=== PATIENT | female | born 1995 | race Caucasian/White ===

== ENCOUNTER 2020-11-16 09:47 | Observation (INO) | payer OTHER, SELFPAY ==
[2020-11-16 10:12] VITALS: BP 129/77; PULSE 102
[2020-11-16 10:15] VITALS: BMI 30.2
[2020-11-16 10:44] LABS: Add Urine Microscopic? YES; Appearance Urine Clear (Clear); Bilirubin Urine Negative (Negative); Blood Urine Negative (Negative); Color Urine Straw (Yellow); Glucose Urine UA Negative (Negative); Ketones Urine 1+ mg/dL (Negative); Leukocyte Esterase Ur Trace LEU/UL (Negative); Nitrate Urine Negative (Negative); Protein Urine Negative (Negative); RBC Urine 0-2 /hpf (0-2); Specific Grav Ur 1.005 (1.001-1.035); Squamous Epithelial Cell Urine Many /hpf (Few); Urobilinogen Urine Negative mg/dL (<2.0); WBC Urine 0-3 /hpf
--- NOTE | 2020-12-07 07:56 | P.PNOB_ITS ---
OB - Triage/Final Diagnosis Visit Information Comments/Additional reasons for admission: I have assessed the risk for this patient, Soni Newby, and determined that she would benefit from observation care. Evaluation Laboratory results: Laboratory Tests 11/16/20 10:19 Urine Color Straw Urine Appearance Clear Urine pH 6.0 Ur Specific [place] 1.005 Urine Protein Negative Urine Glucose (UA) Negative Urine Ketones 1+ H Ur Blood (Man) Negative Urine Nitrate Negative Urine Bilirubin Negative Urine Urobilinogen Negative Leukocyte Esterase Rfl Trace H Urine RBC 0-2 Urine WBC 0-3 Ur Squamous Epith Cells Many H Final Diagnosis (1) False labor: Code(s): O47.9 - False labor, unspecified Status: Acute
== END 2020-11-16 12:00 | disposition home or self-care (01) ==
PROVIDERS: Advanced Practice Midwife; Admitting Provider Obstetrics & Gynecology; PCP Family Medicine; Visit Provider Obstetrics & Gynecology
DX: O47.03 False labor before 37 completed weeks of gestation, third trimester (principal); Z3A.32 32 weeks gestation of pregnancy
CPT/HCPCS: 81001; G0378; G0379

== ENCOUNTER 2021-01-01 16:47 | Inpatient (IN) | payer OTHER, SELFPAY ==
--- OUTSIDE RECORDS SUMMARY | 2021-01-01 16:53 | XMS_ITS ---
:1995 Author Care Team Providers Name Role Phone OMARI CLINE MD Primary Care Provider [phone] Allergies Code Code System Name Reaction Severity Status Onset NKDA ? Medications Name Status Start Date Stop Date ? ? albuterol sulfate Active ? Not available OneTouch Delica Plus Lancet 33 gauge Active ? Not available OneTouch Ultra Test strips Active ? Not a vailable OneTouch Ultra2 Meter Active ? Not availa ble USE TO TEST BLOOD SUGAR 4 TIMES A DAY Active ? Not available Problems Name Status Onset Date Source ? Active 06/28/2020 ? Gestational Diabetes Mellitus Active ? ? Procedures Date Name Performed by ? ? Extraction of [place] Tooth Information n ot available 02/08/2020 , Pelvis [place] [address] [place] [address] (Work [address]) 02/08/2020 , Transvaginal [facility] [address] [place] [address] ([address]) 06/28/2020 US, Obstetric, Nuchal Translucency Darcy hargrove [address] [place] [place] [address] (Work [address]) 08/23/2020 US, Obstetric, 2Nd or 3Rd Trimester Rosanne cochran
--- OUTSIDE RECORDS SUMMARY | 2021-01-01 16:53 | XMS_ITS | Encounter Summary ---
:1995 Author Care Team Providers Name Role Phone David Khanna MD Primary Care Provider [phone] Reason for Visit None recorded. Assessment and Plan 1. Gestational diabetes mellitus , class A>1< Informed pt of results, explai svetlana in depth what the high levels mean, how her body is not processing the sugars correctly and this does rule her in for GDM. Pt states she has no history of DM, only mother who had GDM with all pregnancies. Spoke with patient briefly on the teleph one on 10/20/20 about diet changes and how to adjust meals to decrease carbs and increase protein and healthy fats. Advised to continue low sugar, low carb diet, a nd higher proteins. Reviewed different m eal adjustments and ways to decrease carbs with still getting all of the nutrients she needs. Advised to follow 3 meals a day with snacks in between meals with im portance on the bedtime meal. Reviewed n utritional label with patient and how to count carbs for each meal. Reviewed liquids to avoid and ways to incorporate flavor into water consumption. Pt state she is used to a keto diet and drinks 6 lorin les of water daily. Pt questions whether she can drink water in the middle of the night, advised sips of water are ok, but not to drink large quantity as this can throw off her fasting levels. Advised t o be conscientious of meals and record foods that increase her levels and to avoid those types of foods. Reviewed acceptable drinks for patient and what to avoid. Advised to continue checking blood sugar s four times daily fasting and 1 hour after breakfast, lunch, and dinner. All supplies called into pharmacy on file, confirmed with patient. Pt states checks are going well, no problems with equipment, and understands when to check levels. Advised to continue to record all levels and bring to all appointments from here on out to review with MD. Pt has next appt on 10/30/20, advised we would check blood sugar levels at this time, and if any levels are high to call the office to follow up. Advised will monitor diet controlled and assess the
--- OUTSIDE RECORDS SUMMARY | 2021-01-01 16:54 | XMS_ITS | Encounter Summary ---
:1995 Author Care Team Providers Name Role Phone David Khanna MD Primary Care Provider [phone] Reason for Visit OB visit 38wks Assessment and Plan 1. Routine care Discussion Note: None recorded.Patient educational handouts: No information available. Plan of Care Reminders Provider Appointments Ob Routine 01/08/2021 Geena Shanique 10:00AM MD Timothy ? 3Hr on or around [place] Glucose 02/19/2021 MD [facility] None ? ? recorded. Referral None ? ? recorded. Procedures None ? ? recorded. Surgeries None ? ? recorded. Imaging None ? ? recorded. Medications Name Start Date ? ? albuterol sulfate ? OneTouch Delica Plus Lancet 33 gauge ? USE TO TEST BLOOD SUGAR 4 TIMES A DAY OneTouch Ultra Test strips ? USE TO TEST BLOOD SUGAR 4 TIMES A DAY F ASTING IN THE MORNING AND 1 HR AFTER MEALS OneTouch Ultra2 Meter ? USE TO TEST BLOOD SUGAR 4 TIMES A DAY ? Medications Administered None recorded. Vitals Height Weight BMI Blood Pressure 5 ft 3 in 186 lbs 32.9 kg/m2 128/85 mm[Hg] Results Lab Results None recorded. Allergies
--- OUTSIDE RECORDS SUMMARY | 2021-01-01 16:54 | XMS_ITS | Encounter Summary ---
:1995 Author Care Team Providers Name Role Phone David Khanna MD Primary Care Provider [phone] Reason for Visit None recorded. Assessment and [...]
--- OUTSIDE RECORDS SUMMARY | 2021-01-01 16:54 | XMS_ITS | Encounter Summary ---
:1995 Author Care Team Providers Name Role Phone David Khanna MD Primary Care Provider [phone] Reason for Visit None recorded. Assessment and Plan 1. Gestational diabetes mellitus , class A>1< ? non-stress test Discussion Note: None recorded.Patient educational handouts: No information available. Plan of Care Reminders Provider Appointments Ob Routine 01/08/2021 Geena Shanique 10:00AM MD Timothy ? 3Hr on or around [place] Glucose 02/19/2021 MD [facility] None ? ? recorded. Referral None ? ? recorded. Procedures None ? ? recorded. Surgeries None ? ? recorded. Imaging Non-stress 12/18/2020 [facility] Medications Name Start Date ? ? albuterol [...] DAY ? Medications Administered None recorded. Vitals None recorded. Results Lab Results None recorded. Allergies Code Code System Name Reaction Severity Onset
--- OUTSIDE RECORDS SUMMARY | 2021-01-01 16:54 | XMS_ITS | Encounter Summary ---
:1995 Author Care Team Providers Name Role Phone David Khanna MD Primary Care Provider [phone] Reason for Visit None recorded. Assessment and [...]
--- OUTSIDE RECORDS SUMMARY | 2021-01-01 16:54 | XMS_ITS | Encounter Summary ---
:1995 Author Care Team Providers Name Role Phone David Khanna MD Primary Care Provider [phone] Reason for Visit OB visit 36wks / GBS today Assessment and Plan 1. Routine care Discussion [...] BMI Blood Pressure 5 ft 3 in 183 lbs 32.4 kg/m2 124/73 mm[Hg] Results Lab Results None recorded. Allergies
--- OUTSIDE RECORDS SUMMARY | 2021-01-01 16:54 | XMS_ITS | Encounter Summary ---
:1995 Author Care Team Providers Name Role Phone David Khanna MD Primary Care Provider [phone] Reason for Visit None recorded. Assessment and [...]
--- OUTSIDE RECORDS SUMMARY | 2021-01-01 16:54 | XMS_ITS | Encounter Summary ---
:1995 Author Care Team Providers Name Role Phone David Khanna MD Primary Care Provider [phone] Reason for Visit OB visit Assessment and Plan 1. Gestational diabetes mellitus , class A>1< Discussion Note: None recorded.Patient educational handouts: No [...] BMI Blood Pressure 5 ft 3 in 184 lbs 32.6 kg/m2 129/84 mm[Hg] Results Lab Results None recorded. Allergies Code Code System
--- OUTSIDE RECORDS SUMMARY | 2021-01-01 16:55 | XMS_ITS | Encounter Summary ---
:1995 Author Care Team Providers Name Role Phone David Khanna MD Primary Care Provider [phone] Reason for Visit None recorded. Assessment and [...]
--- OUTSIDE RECORDS SUMMARY | 2021-01-01 16:55 | XMS_ITS | Encounter Summary ---
:1995 Author Care Team Providers Name Role Phone David Khanna MD Primary Care Provider [phone] Reason for Visit None recorded. Assessment and [...]
--- OUTSIDE RECORDS SUMMARY | 2021-01-01 16:55 | XMS_ITS | Encounter Summary ---
:1995 Author Care Team Providers Name Role Phone David Khanna MD Primary Care Provider [phone] Reason for Visit None recorded. Assessment and Plan 1. Gestational diabetes mellitus , class A>1< ? US, obstetric, follow-up Discussion Note: None recorded.Patient educational handouts: No information available. Plan of Care Reminders Provider Appointments Ob Routine 01/08/2021 Geena Shanique 10:00AM MD Timothy ? 3Hr on or around [place] Glucose 02/19/2021 MD [facility] None ? ? recorded. Referral None ? ? recorded. Procedures None ? ? recorded. Surgeries None ? ? recorded. Imaging US, 12/04/2020 [place] [facility], Follow-up Medications Name Start Date ? ? albuterol [...]
--- OUTSIDE RECORDS SUMMARY | 2021-01-01 16:55 | XMS_ITS | Encounter Summary ---
:1995 Author Care Team Providers Name Role Phone David Khanna MD Primary Care Provider [phone] Reason for Visit OB visit Assessment and Plan 1. Gestational diabetes mellitus Discussion Note: None recorded.Patient educational handouts: No [...] BMI Blood Pressure 5 ft 3 in 181 lbs 32.1 kg/m2 127/78 mm[Hg] Results Lab Results None recorded. Allergies Code Code System Name React
--- OUTSIDE RECORDS SUMMARY | 2021-01-01 16:56 | XMS_ITS | Encounter Summary ---
:1995 Author Care Team Providers Name Role Phone David Khanna MD Primary Care Provider [phone] Reason for Visit None recorded. Assessment and [...] Surgeries None ? ? recorded. Imaging Non-stress 11/20/2020 [facility] Medications Name Start Date [...]
--- OUTSIDE RECORDS SUMMARY | 2021-01-01 16:56 | XMS_ITS | Encounter Summary ---
:1995 Author Care Team Providers Name Role Phone David Khanna MD Primary Care Provider [phone] Reason for Visit OB visit Assessment and [...] BMI Blood Pressure 5 ft 3 in 180 lbs 31.9 kg/m2 118/77 mm[Hg] Results Lab Results None recorded. Allergies Code Code System Name React
--- OUTSIDE RECORDS SUMMARY | 2021-01-01 16:56 | XMS_ITS | Encounter Summary ---
:1995 Author Care Team Providers Name Role Phone David Khanna MD Primary Care Provider [phone] Reason for Visit None recorded. Assessment and [...] Surgeries None ? ? recorded. Imaging Non-stress 12/04/2020 [facility] Medications Name Start Date [...]
--- OUTSIDE RECORDS SUMMARY | 2021-01-01 16:56 | XMS_ITS | Encounter Summary ---
:1995 Author Care Team Providers Name Role Phone David Khanna MD Primary Care Provider [phone] Reason for Visit OB visit Assessment and Plan 1. Routine care 2. Gestational diabetes mellitus , class A>1< Discussion [...] ft 3 in 180 lbs 31.9 kg/m2 125/81 mm[Hg] Results Lab Results
--- OUTSIDE RECORDS SUMMARY | 2021-01-01 16:56 | XMS_ITS | Encounter Summary ---
:1995 Author Care Team Providers Name Role Phone David Khanna MD Primary Care Provider [phone] Reason for Visit None recorded. Assessment and [...]
--- OUTSIDE RECORDS SUMMARY | 2021-01-01 16:56 | XMS_ITS | Encounter Summary ---
:1995 Author Care Team Providers Name Role Phone David Khanna MD Primary Care Provider [phone] Reason for Visit None recorded. Assessment and [...] Surgeries None ? ? recorded. Imaging Non-stress 11/27/2020 [facility] Medications Name Start Date [...]
--- OUTSIDE RECORDS SUMMARY | 2021-01-01 16:57 | XMS_ITS | Encounter Summary ---
:1995 Author Care Team Providers Name Role Phone David Khanna MD Primary Care Provider [phone] Reason for Visit None recorded. Assessment and Plan 1. Spotting per vagina in pregna ncy ? US, obstetric, biophysical profile + non-stress test Discussion Note: None recorded.Patient educational handouts: No information available. Plan of Care Reminders Provider Appointments Ob Routine 01/08/2021 Geena Shanique 10:00AM MD Timothy ? 3Hr Glucose on or around Remigio [place] 02/19/2021 MD [facility] None ? ? recorded. Referral None ? ? recorded. Procedures None ? ? recorded. Surgeries None ? ? recorded. Imaging US, 11/16/2020 [place] [facility], Biophysical Profile + Non-stress Test Medications Name Start Date ? ? [...]
--- OUTSIDE RECORDS SUMMARY | 2021-01-01 16:57 | XMS_ITS | Encounter Summary ---
:1995 Author Care Team Providers Name Role Phone David Khanna MD Primary Care Provider [phone] Reason for Visit OB visit Assessment and Plan Assessment Note Patient is ___weeks . Discu ssed plan. 1. Routine care Discussion Note: None recorded.Patient educational handouts: No information available. Plan of Care Reminders Provider Appointments Ob Routine 01/08/2021 Geena Shanique 10:00AM MD Timothy ? 3Hr on or around Rohit [place] Glucose 02/19/2021 MD [facility] None ? [...] BMI Blood Pressure 5 ft 3 in 177 lbs 31.4 kg/m2 122/75 mm[Hg] Results
--- OUTSIDE RECORDS SUMMARY | 2021-01-01 16:57 | XMS_ITS | Encounter Summary ---
:1995 Author Care Team Providers Name Role Phone David Khanna MD Primary Care Provider [phone] Reason for Visit None recorded. Assessment and [...] will monitor diet controlled and assess the n
--- OUTSIDE RECORDS SUMMARY | 2021-01-01 16:57 | XMS_ITS | Encounter Summary ---
:1995 Author Care Team Providers Name Role Phone David Khanna MD Primary Care Provider [phone] Reason for Visit None recorded. Assessment and [...]
--- OUTSIDE RECORDS SUMMARY | 2021-01-01 16:57 | XMS_ITS | Encounter Summary ---
:1995 Author Care Team Providers Name Role Phone David Khanna MD Primary Care Provider [phone] Reason for Visit None recorded. Assessment and Plan 1. Gestational diabetes mellitus ? US, obstetric, follow-up Discussion Note: None recorded.Patient educational handouts: No information available. Plan of Care Reminders Provider Appointments Ob Routine 01/08/2021 Geena Shanique 10:00AM MD Timothy ? 3Hr on or around Rohit ann Glucose 02/19/2021 MD [facility] None ? ? recorded. Referral None ? ? recorded. Procedures None ? ? recorded. Surgeries None ? ? recorded. Imaging US, 11/06/2020 [place] [facility], Follow-up Medications Name Start Date ? [...]
--- OUTSIDE RECORDS SUMMARY | 2021-01-01 16:57 | XMS_ITS | Encounter Summary ---
:1995 Author Care Team Providers Name Role Phone David Khanna MD Primary Care Provider [phone] Reason for Visit None recorded. Assessment and Plan 1. condition affecting obs tetrical care of mother ? US, obstetric, biophysical profile + non-stress [...] Surgeries None ? ? recorded. Imaging US, 11/13/2020 [place] [facility], Biophysical Profile + Non-stress Test Medications [...]
--- OUTSIDE RECORDS SUMMARY | 2021-01-01 16:58 | XMS_ITS | Encounter Summary ---
:1995 Author Care Team Providers Name Role Phone David Khanna MD Primary Care Provider [phone] Reason for Visit OB visit Assessment and Plan 1. Routine care Discussion [...] BMI Blood Pressure 5 ft 3 in 179 lbs 31.7 kg/m2 119/83 mm[Hg] Results Lab Results None recorded. Allergies Code Code System Name Reaction S
[2021-01-01 17:10] VITALS: BP 135/84; PULSE 58
[2021-01-01 17:15] VITALS: BP 127/78; PULSE 60
[2021-01-01 17:30] VITALS: BP 120/79; PULSE 64; BMI 31.4
[2021-01-01 18:08] LABS: Basophils Percent Auto 0.1 % (0.2-1.2); Eosinophils Absolute Auto 0.1 K/mm3 (0-0.3); Eosinophils Percent Auto 0.9 % (0-4.4); Hematocrit 32.6 % (37.0-47.0); Hemoglobin 10.4 g/dL (12.0-15.0); Immature Granulocyte Absolute 0.05 K/mm3 (0.00-0.031); Immature Granulocyte Percent A 0.5 % (0-0.5); Lymphocytes Absolute Auto 1.89 K/mm3 (0.9-3.2); Lymphocytes Percent Auto 19.7 % (18.3-44.2); Mean Corpuscular HGB Conc 31.9 g/dl (32-36); Mean Corpuscular Hemoglobin 24.9 pg (26-34); Mean Platelet Volume 11.7 fl (7.4-10.4); Monocytes Absolute Auto 0.9 K/mm3 (0.1-0.6); Monocytes Percent Auto 9.3 % (2.6-8.5); Neutrophils Absolute Auto 6.7 K/mm3 (1.3-6.7); Neutrophils Percent Auto 69.5 % (45.5-73.1); Platelet Count Result 241 k/mm3 (150-375); Red Blood Count 4.18 M/mm3 (4.2-5.4); Red Cell Distribution Width 13.1 % (11.5-14.5); White Blood Count 9.6 K/mm3 (4.5-10.0)
[2021-01-01 18:15] VITALS: BP 125/83; PULSE 64
[2021-01-01 18:30] VITALS: BP 120/89; PULSE 58
[2021-01-01 18:41] LABS: Glucose Point of Care 59 mg/dl (65-105)
[2021-01-01] MEDS: DINOPROSTONE 10 MG VAG INSERT VAGINAL (18:58)
[2021-01-01 19:14] VITALS: TEMP 36.4
[2021-01-01 20:00] LABS: Glucose Point of Care 79 mg/dl (65-105)
[2021-01-02] VITALS (188 sets, daily range): BP systolic 107–148; BP diastolic 56–107; PULSE 48–107; RESP 18–20; TEMP 36.1–36.7; O2SAT 96–100
[2021-01-02 01:15] LABS: Glucose Point of Care 95 mg/dl (65-105)
[2021-01-02 05:08] LABS: Glucose Point of Care 61 mg/dl (65-105)
--- NOTE | 2021-01-02 06:55 | LDADM ---
This patient, Soni Newby, was admitted to Labor/Delivery/Recovery 104 on 01/01/21 at 16:47. Plans for labor, pain management and were discussed with patient. Patient/family oriented to hospital policies and general routines including ID bracelet, bed and alarms, visiting hours, pain management, procedures, bathroom and other care routines, personal items, smoking policy, room service/diet and guest tray routines, infant security routines, and visiting hours. Patient/Family are encouraged to report perceived risks to care and to ask questions if they do not understand what they are told or what they should do. See OBIX for further documentation.
[2021-01-02] MEDS: OXYTOCIN 30 UNITS/NS 500 ML 30 UNITS/500 ML BAG IV CONT (07:59)
[2021-01-02] MEDS: LACTATED RINGERS 1,000 ML 125 ML IV CONT ×3 (08:00→15:07)
--- NOTE | 2021-01-02 08:09 | PM.IMHP ---
H&P: HPI History of Present Illness Date/Time: 01/02/21 08:09 Chief Complaint: induction of labor Narrative: Soni is a G1 at 39.1 for elective IOL. uncomplicated. Had cervidil overnight. Is feeling some contractions. Review of Systems Review of Systems: All systems reviewed & are unremarkable except as noted in HPI and below PMFSH Family History Family History (Updated 12/11/20 @ 12:30 by Santo Collier RN) Other No pertinent family history Social History Social History Smoking status: Never smoker Second hand tobacco smoke exposure: No Substance use: never Spiritual care concerns: No Meds Home Medications and Allergies Home Medications Medication Instructions Recorded Confirmed Type PNV cmb#95-ferrous fumarate-FA 1 tablet PO DAILY 12/11/20 12/11/20 History [] albuterol 90 mcg INHALATION DAILY PRN 12/11/20 12/11/20 History Allergies Allergy/AdvReac Type Severity Reaction Status Date / Time No Known Allergies Allergy Verified 12/11/20 12:28 Vital Signs Vital Signs - 24 hr 01/01/21 17:10 01/01/21 17:15 01/01/21 17:30 Temperature Pulse Rate 58 L 60 64 Respiratory Rate Blood Pressure 135/84 127/78 120/79 01/01/21 18:15 01/01/21 18:30 01/01/21 19:14 Temperature 97.5 F L Pulse Rate 64 58 L Respiratory Rate Blood Pressure 125/83 120/89 01/02/21 01:16 01/02/21 05:09 01/02/21 07:13 Temperature 97.2 F L Pulse Rate 61 65 Respiratory Rate 18 Blood Pressure 116/63 119/75 01/02/21 07:14 01/02/21 07:30 01/02/21 08:01 Temperature Pulse Rate 60 68 63 Respiratory Rate Blood Pressure 127/80 129/76 129/79 Exam Const: General: no acute distress Resp: Effort & Inspection: normal respiratory effort Auscultation: clear to auscultation bilaterally Cardio: Rate: regular rate Rhythm: regular rhythm GI: GI Palp: Yes Soft to palpation Extrem: General: normal to inspection H&P: Results Labs Labs: Short CBC 01/01/21 Range/Units 18:00 WBC 9.6 (4.5-10.0) K/mm3 Hgb 10.4 L (12.0-15.0) g/dL Hct 32.6 L (37.0-47.0) % Plt Count 241 (150-375) k/mm3 Assessment and Plan Additional Plan Here for induction of labor- elective GBS neg SVE /-3 unable to AROM, some bloody show pitocin per protocol, reattempt arom in several hours if does not SROM FHT category 1 Discussed POC with pt, , and RN.
[2021-01-02 09:00] LABS: Glucose Point of Care 72 mg/dl (65-105)
[2021-01-02 11:37] LABS: Rapid Plasma Reagin Non-Reactive (NonReactive)
[2021-01-02] MEDS: fentaNYL CITRATE INJ (*CRX) 100 MCG/2 ML VIAL 50 MCG IV PUSH (12:21)
[2021-01-02 12:41] LABS: Glucose Point of Care 60 mg/dl (65-105)
--- NOTE | 2021-01-02 13:12 | PM.OBPNLAB ---
Pain Control Date/time seen: 01/02/21 13:12 Pain control: tolerating well and narcotic analgesia Pelvic Exam Dilation (cm): 3 Effacement (%): 70 station: -3 Amniotic membrane status: Ruptured Comments: AROM clear around 1305 Contractions Contraction pattern: Irregular Status status: Category l Assessment and Plan Plan: continuous present management
[2021-01-02] MEDS: fentaNYL CITRATE INJ (*CRX) 100 MCG/2 ML VIAL IV PUSH (14:13)
--- NOTE | 2021-01-02 15:06 | WPDANESEPPF ---
Anes - Initial Pre Proc Eval Date/Time: 01/02/21 15:06 Surgeon: Gunnar Kasper MD Pre Op Diagnosis: Induction of Labor Patient Data Age: 25 Gender: F Height: 1.63 m Weight: 83 kg Last Vital Signs Temp 36.5 C 01/02/21 15:00 Pulse 58 L 01/02/21 15:01 Resp 20 01/02/21 15:00 BP 119/78 01/02/21 15:01 Pulse Ox 99 01/02/21 15:02 Allergies Allergy/AdvReac Type Severity Reaction Status Date / Time No Known Allergies Allergy Verified 12/11/20 12:28 Home Medications Medication Instructions Recorded Confirmed Type PNV cmb#95-ferrous fumarate-FA 1 tablet PO DAILY 12/11/20 12/11/20 History [] albuterol 90 mcg INHALATION DAILY PRN 12/11/20 12/11/20 History Laboratory Tests 01/01/21 01/01/21 01/01/21 18:00 18:00 18:00 WBC 9.6 K/mm3 K/mm3 (4.5-10.0) RBC 4.18 M/mm3 L M/mm3 (4.2-5.4) Hgb 10.4 g/dL L g/dL (12.0-15.0) Hct 32.6 % L % (37.0-47.0) MCV 78.0 fl L fl (80-100) MCH 24.9 pg L pg (26-34) MCHC 31.9 g/dl L g/dl (32-36) RDW 13.1 % % (11.5-14.5) Plt Count 241 k/mm3 k/mm3 (150-375) MPV 11.7 fl H fl (7.4-10.4) Immature Gran % (Auto) 0.5 % % (0-0.5) Neut % (Auto) 69.5 % % (45.5-73.1) Lymph % (Auto) 19.7 % % (18.3-44.2) [place] % (Auto) 9.3 % H % (2.6-8.5) Eos % (Auto) 0.9 % % (0-4.4) Baso % (Auto) 0.1 % L % (0.2-1.2) Lymph # (Auto) 1.89 K/mm3 K/mm3 (0.9-3.2) [place] # (Auto) 0.9 K/mm3 H K/mm3 (0.1-0.6) Eos # (Auto) 0.1 K/mm3 K/mm3 (0-0.3) Baso # (Auto) 0.0 K/mm3 K/mm3 (0.0-0.1) Abs Immat Gran (auto) 0.05 K/mm3 H K/mm3 (0.00-0.031) Absolute Neuts (auto) 6.7 K/mm3 K/mm3 (1.3-6.7) Absolute Nucleated RBC 0.0 K/mm3 K/mm3 (0.0-0.012) Nucleated RBC % 0.0 % % (0.0-0.2) POC Capillary Glucose RPR Non-reactive (NonReactive) Blood Type A Positive Antibody Screen Negative 01/01/21 01/01/21 01/02/21 18:38 19:57 01:12 WBC RBC Hgb Hct MCV MCH MCHC RDW Plt Count MPV Immature Gran % (Auto) Neut % (Auto) Lymph % (Auto) [place] % (Auto) Eos % (Auto) Baso % (Auto) Lymph # (Auto) [place] # (Auto) Eos # (Auto) Baso # (Auto) Abs Immat Gran (auto) Absolute Neuts (auto) Absolute Nucleated RBC Nucleated RBC % POC Capillary Glucose 59 mg/dl L* mg/dl 79 mg/dl mg/dl 95 mg/dl mg/dl (65-105) (65-105) (65-105) RPR Blood Type Antibody Screen 01/02/21 01/02/21 01/02/21 05:05 08:57 12:37 WBC RBC Hgb Hct MCV MCH MCHC RDW Plt Count MPV Immature Gran % (Auto) Neut % (Auto) Lymph % (Auto) [place] % (Auto) Eos % (Auto) Baso % (Auto) Lymph # (Auto) [place] # (Auto) Eos # (Auto) Baso # (Auto) Abs Immat Gran (auto) Absolute Neuts (auto) Absolute Nucleated RBC Nucleated RBC % POC Capillary Glucose 61 mg/dl L mg/dl 72 mg/dl mg/dl 60 mg/dl L mg/dl (65-105) (65-105) (65-105) RPR Blood Type Antibody Screen Patient hx anesthesia problems: none Family hx anesthesia problems: none Results Review: All pre-operative results and documents have been reviewed as part of the pre-operative evaluation. PMFSH Past Medical History Medic
[2021-01-02 16:07] LABS: Glucose Point of Care 74 mg/dl (65-105)
[2021-01-02] MEDS: ONDANSETRON INJ 4 MG/2 ML VIAL IV PUSH ×2 (17:49→23:44)
[2021-01-02 20:06] LABS: Glucose Point of Care 91 mg/dl (65-105)
[2021-01-02 23:23] LABS: Glucose Point of Care 79 mg/dl (65-105)
[2021-01-03] VITALS (85 sets, daily range): BP systolic 107–134; BP diastolic 57–86; PULSE 25–159; RESP 16–18; TEMP 36.6–38.2; O2SAT 71–100
[2021-01-03 03:23] LABS: Glucose Point of Care 90 mg/dl (65-105)
[2021-01-03] MEDS: OXYTOCIN 30 UNITS/NS 500 ML 30 UNITS/500 ML BAG 125 UNITS IV CONT (04:45)
--- NOTE | 2021-01-03 04:51 | P.PCNOB_ITS ---
OB - Delivery Note Procedure Delivery date: 01/03/21 Procedure: events: Gestational Diabetes Induction method: AROM, per pitocin protocol and per cervidil protocol Delivery monitor: external FHT and internal uterine Route of delivery: Laceration Description: Vaginal - 1st Degree Delivery repair: vicryl Specimen: No Quantitative Blood Loss (ml): 300 Anesthesia type: Epidural Disposition: floor Narrative: With adequate expulsive efforts by the mother, the baby's head was delivered OA. The baby's anterior shoulder was delivered under the pubic symphysis without difficulty. The posterior shoulder and the rest of the baby delivered without difficulty. The infant was placed on the mothers chest and suctioned and stimulated. The cord was clamped and cut after 30 seconds. Moth er and baby both stable. Baby Date of : 01/03/21 Time of : 04:24 Weeks of gestation at delivery: 39 gender: Male Weight (pounds): 6 Weight (ounces): 15 presentation: vertex Placenta delivery description: Spontaneous cord vessel description: 3 Vessels and Nuchal Cord score one minute: 5 score five minutes: 8
[2021-01-03] MEDS: IBUPROFEN 600 MG TABLET PO ×2 (05:53→09:58)
--- NOTE | 2021-01-03 06:39 | PHAR ---
PHARMACY VERIFIED HOME MED: *USE FROM HOME* Albuterol 90 mcg/actuation Aerosol INHALE 2 PUFFS EVERY 4 HOURS NEEDED FOR WHEEZING
--- NOTE | 2021-01-03 09:05 | PC.NURSE ---
Mother called out for assist with feeding, reporting is sleepy. Infant eagerly latched nursing for 50 minutes first feeding. Assured mother this is normal to wake infant for feedings the first several days. Infant is able to freely thrust tongue past gum ridge and flange both lips. Skin is intact on both nipples, no redness and bruising noted. Reviewed feeding cues, frequency every 2-3 hours, duration of feedings, feeding elimination flow sheet, and signs of adequate intake. Demonstrated stimulation techniques to wake for feeding. Assisted with infant to breast. Reviewed positioning/alignment in cross cradle, holding breast in ?U? hold and guided asymmetrical latch on. Reviewed rational for each. able to latch correctly within a few attempts. nursed eagerly with steady draws and occasional swallowing noted, some pausing noted. Reviewed signs of a correct latch, effective nursing and suck swallow ratio. Suggested mother stimulate while feeding to increase stimulation for milk supply, for increased intake and to assist with maintaining deep latch. would pause and slip to shallow latch causing tenderness. Demonstrated how to adjust latch more deeply while feeding as needed. Mother reports she can feel the difference in latch with no tenderness. Nipple care reviewed of lanolin after feedings, warm compresses as needed. Instructed mother to call out for RN assistance if she is unable to latch for feeding or she has discomfort with nursing. Instructed feeding should be initiated three hours from start of last feeding or if feeding cues are noted before. Mother voiced understanding of information shared.
[2021-01-03] MEDS: MULTIVIT/MIN/PREN/FOL AC/IRON TABLET 1 TAB PO (09:59)
[2021-01-03] MEDS: DOCUSATE SODIUM 100 MG CAPSULE PO (09:59)
--- NOTE | 2021-01-03 10:12 | OBPPTRN ---
0719-Patient transferred to post room #283 via wheelchair. Support person present. Oriented to unit, room, information board, rooming in, admission packet and security measures. Patient verbalizes understanding.
--- NOTE | 2021-01-03 12:20 | PC.NURSE ---
Mother called out for assist with feeding, reporting she is unable to wake for feeding. Demonstrated stimulation techniques to wake for feeding. Several minutes to wake infant and feeding cues noted. Assisted with to breast. Reviewed positioning/alignment in cross cradle, holding breast in ?U? hold and guided asymmetrical latch on. Reviewed rational for each. able to latch correctly within a few attempts. nursed eagerly with steady draws and occasional swallowing noted for short bursts followed with long pausing. Reviewed signs of a correct latch, effective nursing and suck swallow ratio. Suggested mother stimulate while feeding to increase stimulation for milk supply, for increased intake and to assist with maintaining deep latch. Infant would respond with repeated bursts of effective suckling followed with long pausing. was able to maintain latch without discomfort to mother.
[2021-01-04 00:20] VITALS: BP 103/50; PULSE 69; RESP 16
[2021-01-04] MEDS: ACETAMINOPHEN 325 MG TABLET 650 MG PO ×2 (00:26→09:12)
[2021-01-04] MEDS: IBUPROFEN 600 MG TABLET PO ×2 (00:27→09:13)
[2021-01-04 05:16] LABS: Hematocrit 31.3 % (37.0-47.0); Hemoglobin 9.9 g/dL (12.0-15.0)
--- NOTE | 2021-01-04 08:18 | PM.OBPNVD ---
OB - PN: Subj Subjective Date/time seen: 01/04/21 08:18 Patient comments: no complaints baby status: doing well OB - PN: Obj Data Labs CBC & Chem 7: 01/04/21 03:28 Labs: Laboratory Results - last 24 hr 01/04/21 03:28 Hgb 9.9 L Hct 31.3 L OB - PN A/P Plan day: 1 Plan: routine care and discharge home Time Spent With Patient Time: Total time spent is greater than 50% in coordination of care (as documented) at patient's floor/unit and/or counseling patient: Review of Systems Review of Systems: All systems reviewed & are unremarkable except as noted in HPI and below Exam Const: General: cooperative, healthy appearing and comfortable
--- NOTE | 2021-01-04 08:20 | PM.OBDSVD ---
DS: Admitting Diagnosis Discharge Date 01/04/21 Admitting Diagnosis IOL OB - DS: Summary OB Procedures : None OB Procedures Intrapartum: Spontaneous Vag Delivery OB Procedures: : None Time Spent with Patient Time attestation: Total time spent providing and/or coordinating discharge services: DS: Data Data Completed and Pending Labs on day of discharge: Labs from last 24 hours 01/04/21 03:28 Hgb 9.9 L Hct 31.3 L Discharge Plan Discharge Attending physician on discharge: Gunnar Kasper Discharging Clinician: Soni Elizabeth Patient Disposition: Home, Self-Care Activity: pelvic rest Diet: regular Patient Instructions: Antibiotic Form Stand Alone Forms: General Discharge Information Follow-up/Referrals: Geena Aguirre MD [Physician] - 4 Weeks Discharge Medications: Continued albuterol 90 mcg/actuation Aerosol 90 mcg INHALATION DAILY PRN (Reason: Wheezing) RF: 0 PNV cmb#95-ferrous fumarate-FA [] 28 mg iron- 800 mcg Tablet 1 tablet PO DAILY RF: 0 Date of admission: 01/01/21 16:47 Primary Care Provider: Karon,David Valerio Admitting Provider: Gunnar Kapser Attending physician on admission: Gunnar Kasper Condition: Stable
[2021-01-04 08:40] VITALS: BP 115/79; PULSE 99; RESP 16; TEMP 36.9; O2SAT 99
[2021-01-04] MEDS: ONDANSETRON HCL ODT 4 MG TABLET PO (09:29)
[2021-01-04] MEDS: POLYSACCHARIDE IRON COMPLEX 150 MG CAPSULE PO (10:11)
[2021-01-04] MEDS: DOCUSATE SODIUM 100 MG CAPSULE PO (10:11)
[2021-01-04] MEDS: MULTIVIT/MIN/PREN/FOL AC/IRON TABLET 1 TAB PO (10:11)
--- NOTE | 2021-01-04 12:06 | WPDANLDPN2 ---
Anes-Prog Note L&D Date/Time: 01/04/21 12:06 Comfortable throughout: labor and delivery Neuraxial method: epidural Epidural/Spinal procedure site: clean & non-tender Neuro status: Neuro function grossly intact. Cardiovascular status: normal Respiratory status: normal Airway patency: baseline Mental status: baseline Post-Op hydration status: normal Vital Signs: Last Vital Signs Temp 36.9 C 01/04/21 08:40 Pulse 99 01/04/21 08:40 Resp 16 01/04/21 08:40 BP 115/79 01/04/21 08:40 Pulse Ox 99 01/04/21 08:40 Pain score (VAS): 02/19 Post-procedural complaints: none Patient feedback: Patient satisfied with anesthetic care.
[2021-01-06 09:10] VITALS: BP 123/79; PULSE 87; RESP 18; TEMP 36.8; O2SAT 99
== END 2021-01-04 13:43 | disposition home or self-care (01) | DRG 560 ==
LOC: ANHOB2 01-04 10:35 → ANHLDR 01-05 11:18 → ANHOB2 01-05 11:18
PROVIDERS: Obstetrics & Gynecology; Admitting Provider Obstetrics & Gynecology; PCP Family Medicine; Visit Provider Obstetrics & Gynecology
DX: O75.2 Pyrexia during labor, not elsewhere classified (principal); O24.429 Gestational diabetes mellitus in childbirth, unspecified control; O70.0 First degree perineal laceration during delivery; O69.81X0 Labor and delivery complicated by cord around neck, without compression, not applicable or unspecified; Z3A.39 39 weeks gestation of pregnancy; Z37.0 Single live birth
CPT/HCPCS: 36415; 82948; 85014; 85018; 85025; 86592; 86850; 86900; 86901; A9270; J2405; J2590; J2795; J3010; J7120

== ENCOUNTER 2022-08-29 00:39 | Observation (INO) | payer OTHER, SELFPAY ==
[2022-08-29] VITALS (16 sets, daily range): BP systolic 122; BP diastolic 83; PULSE 25–134; O2SAT 78–100; BMI 29.2
[2022-08-29] MEDS: TERBUTALINE SULFATE 1 MG/ML VIAL 0.25 MG SUB-Q (01:14)
[2022-08-29] MEDS: LACTATED RINGERS 1,000 ML 999 ML XX (01:25)
[2022-08-29 01:31] LABS: Appearance Urine Clear (Clear); Bacteria Urine Rare /hpf; Bilirubin Urine Negative (Negative); Blood Urine Negative (Negative); Color Urine Yellow (Yellow); Glucose Urine UA Negative (Negative); Ketones Urine 4+ mg/dL (Negative); Leukocyte Esterase Ur 1+ LEU/UL (Negative); Nitrate Urine Negative (Negative); Non Pathogenic Casts 0-2; Protein Urine Negative (Negative); RBC Urine 0-2 /hpf (0-2); Squamous Epithelial Cell Urine Few /hpf (Few); pH Urine 6.5 (5.0-9.0)
[2022-08-29 01:40] LABS: Add Urine Microscopic? YES; Fetal Fibronectin Negative
[2022-08-29 01:47] LABS: Basophils Percent Auto 0.3 % (0.2-1.2); Eosinophils Absolute Auto 0.2 K/mm3 (0-0.3); Eosinophils Percent Auto 1.9 % (0-4.4); Hematocrit 35.3 % (37.0-47.0); Hemoglobin 11.3 g/dL (12.0-15.0); Immature Granulocyte Absolute 0.03 K/mm3 (0.00-0.031); Immature Granulocyte Percent A 0.3 % (0-0.5); Lymphocytes Absolute Auto 2.37 K/mm3 (0.9-3.2); Lymphocytes Percent Auto 24.5 % (18.3-44.2); Mean Corpuscular Hemoglobin 26.4 pg (26-34); Mean Corpuscular Volume 82.5 fl (80-100); Mean Platelet Volume 10.6 fl (7.4-10.4); Monocytes Absolute Auto 0.7 K/mm3 (0.1-0.6); Monocytes Percent Auto 6.9 % (2.6-8.5); Neutrophils Absolute Auto 6.4 K/mm3 (1.3-6.7); Neutrophils Percent Auto 66.1 % (45.5-73.1); Platelet Count Result 257 k/mm3 (150-375); Red Blood Count 4.28 M/mm3 (4.2-5.4); Red Cell Distribution Width 12.3 % (11.5-14.5); White Blood Count 9.7 K/mm3 (4.5-10.0)
[2022-08-29] MEDS: DEXTROSE 5%/LACTATED RINGERS 1,000 ML 999 ML XX (02:25)
--- NOTE | 2022-08-29 02:31 | OBADM ---
This patient, Soni Newby, admitted to the OB room OB Post 117 for observation. Patient/family oriented to hospital policies and general routines including ID bracelet, bed and alarms, visiting hours, pain management, procedures, bathroom and other care routines, personal items, smoking policy, room service/diet, and visiting hours. Patient/Family are encouraged to report perceived risks to care and to ask questions if they do not understand what they are told or what they should do.
--- NOTE | 2022-08-31 14:48 | PM.OBTRLD ---
OB - Triage/Final Diagnosis Visit Information Date of evaluation: 08/29/22 Reason for evaluation: threatened labor Comments/Additional reasons for admission: I have assessed the risk for this patient, Soni Newby, and determined that she would benefit from observation care. Evaluation Laboratory results: Laboratory Tests 08/29/22 08/29/22 01:07 01:42 WBC 9.7 RBC 4.28 Hgb 11.3 L Hct 35.3 L MCV 82.5 MCH 26.4 MCHC 32.0 RDW 12.3 Plt Count 257 MPV 10.6 H Immature Gran % (Auto) 0.3 Neut % (Auto) 66.1 Lymph % (Auto) 24.5 [place] % (Auto) 6.9 Eos % (Auto) 1.9 Baso % (Auto) 0.3 Lymph # (Auto) 2.37 [place] # (Auto) 0.7 H Eos # (Auto) 0.2 Baso # (Auto) 0.0 Abs Immat Gran (auto) 0.03 Absolute Neuts (auto) 6.4 Absolute Nucleated RBC 0.0 Nucleated RBC % 0.0 Urine Color Yellow Urine Appearance Clear Urine pH 6.5 Ur Specific [place] 1.020 Urine Protein Negative Urine Glucose (UA) Negative Urine Ketones 4+ H Ur Blood (Man) Negative Urine Nitrate Negative Urine Bilirubin Negative Urine Urobilinogen 1.0 Leukocyte Esterase Rfl 1+ H Urine RBC 0-2 Urine WBC 6-10 H Ur Squamous Epith Cells Few Urine Bacteria Rare Urine Casts 0-2 Fibronectin Negative
== END 2022-08-29 03:50 | disposition home or self-care (01) ==
PROVIDERS: Admitting Provider Obstetrics & Gynecology; PCP Family Medicine; Referring Provider Advanced Practice Midwife; Visit Provider Obstetrics & Gynecology
DX: O47.03 False labor before 37 completed weeks of gestation, third trimester (principal); Z3A.29 29 weeks gestation of pregnancy
CPT/HCPCS: 36415; 81001; 82731; 85025; 87086; 96372; G0378; G0379; J3105; J7120; J7121

== ENCOUNTER 2022-09-23 13:35 | Observation (INO) | payer OTHER, SELFPAY ==
[2022-09-23] VITALS (21 sets, daily range): BP systolic 98–120; BP diastolic 52–73; PULSE 32–139; RESP 18; TEMP 36.4; O2SAT 81–100; BMI 29.6
--- NOTE | 2022-09-23 13:35 | OBADM ---
This patient, Soni Newby, admitted to the OB room OB Post 116 for observation. Patient/family oriented to hospital policies and general routines including ID bracelet, bed and alarms, visiting hours, pain management, procedures, bathroom and other care routines, personal items, smoking policy, room service/diet, and visiting hours. Patient/Family are encouraged to report perceived risks to care and to ask questions if they do not understand what they are told or what they should do.
[2022-09-23 14:18] LABS: Appearance Urine Clear (Clear); Bacteria Urine None Seen /hpf; Bilirubin Urine Negative (Negative); Blood Urine Negative (Negative); Color Urine Yellow (Yellow); Glucose Urine UA Negative (Negative); Ketones Urine 1+ mg/dL (Negative); Leukocyte Esterase Ur Trace LEU/UL (NEGATIVE); Nitrate Urine Negative (Negative); Non Pathogenic Casts 0-2; Protein Urine Negative (Negative); RBC Urine 0-2 /hpf (0-2); Specific Grav Ur 1.005 (1.001-1.035); Squamous Epithelial Cell Urine Occasional /hpf (Few); Urobilinogen Urine 0.2 mg/dL (<2.0); WBC Urine 0-5 /hpf (0-3); pH Urine 7.5 (5.0-9.0)
[2022-09-23 14:24] LABS: Add Urine Microscopic? YES
[2022-09-23] MEDS: NIFEdipine 10 MG CAPSULE PO ×3 (15:20→20:54)
[2022-09-23 16:00] LABS: Fetal Fibronectin Negative
[2022-09-23] MEDS: ACETAMINOPHEN 500 MG TABLET 1000 MG PO (16:54)
[2022-09-23] MEDS: FLUCONAZOLE 150 MG TABLET PO (17:00)
[2022-09-23] MEDS: BETAMETHASONE SOD PHOS/ACETATE 30 MG/5 ML VIAL 12 MG IM (18:59)
[2022-09-23] MEDS: LACTATED RINGERS 1,000 ML 999 ML IV CONT (18:59)
--- NOTE | 2022-09-23 20:37 | P.HP_ITS ---
H&P: HPI History of Present Illness Date/Time: 09/23/22 20:37 Chief Complaint: contractions Narrative: Soni is a 27yo at 32.4 with contractions. She presented several hours ago and has received three doses of procardia 10 that slowed the contractions down. FFN neg. However, contractions have returned stronger and more frequent now, q 3 min, and cervix has changed from /-3 to /-3. P regnancy has otherwise been uncomplicated except for anxiety and depression. Celestone #1 given. NO LOF or bleeding. FHT have been category 1. Also treated for yeast with diflucan today. UA essentially neg. Review of Systems Review of Systems: All systems reviewed & are unremarkable except as noted in HPI and below PMFSH Past Medical History Medical History Anxiety Asthma Family History Family History Other No pertinent family history Social History Social History Smoking status: Never smoker Second hand tobacco smoke exposure: No Substance use: never Spiritual care concerns: No Meds Home Medications and Allergies Home Medications Medication Instructions Recorded Confirmed Type albuterol 90 mcg/actuation aerosol 90 mcg inhalation DAILY PRN 12/11/20 12/11/20 History inhaler Wheezing vit no.95-ferrous 1 tablet PO DAILY 12/11/20 12/11/20 History fumarate 28 mg-folic acid 800 mcg tablet () Allergies Allergy/AdvReac Type Severity Reaction Status Date / Time No Known Allergies Allergy Verified 12/11/20 12:28 Vital Signs Vital Signs - 24 hr 09/23/22 13:58 09/23/22 14:00 09/23/22 13:59 Pulse Rate 76 76 Blood Pressure 116/62 110/69 Oxygen Delivery Room Air Exam Const: General: no acute distress Resp: Effort & Inspection: normal respiratory effort Auscultation: clear to auscultation bilaterally Cardio: Rate: regular rate Rhythm: regular rhythm GI: GI Palp: Yes Soft to palpation Extrem: General: normal to inspection H&P: Results Labs Labs: Urine 09/23/22 Range/Units 13:58 Urine Color Yellow (Yellow) Urine Appearance Clear (Clear) Urine pH 7.5 (5.0-9.0) Ur Specific [place] 1.005 (1.001-1.035) Urine Protein Negative (Negative) mg/dL Urine Glucose (UA) Negative (Negative) mg/dL Assessment and Plan Assessment and plan (1) labor in third trimester: Code(s): O60.03 - labor without delivery, third trimester Status: Acute Plan FHT category 1 s/p nifedipine and steroids #1. FFN neg now with cervical change, will transfer to [place]. 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
[2022-09-23] MEDS: MAGNESIUM SULF 6 GM/WATER150ML 6 GM/150 ML BAG IVPB (21:04)
--- NOTE | 2022-09-23 21:19 | PM.OBPNVD ---
OB - PN: Subj Subjective Date/time seen: 09/23/22 21:19 Interval history: 27-year-old multi up at 32 weeks with labor signs and symptoms. She has been stabilized with nifedipine and magnesium sulfate. She has received steroids. [facility] is agreed to take the transfer. Dr. Díaz has accepted. Will proceed with transfer. Nurses are in contact with each other. OB - PN: Obj Data Labs Labs: Laboratory Results - last 24 hr 09/23/22 09/23/22 13:58 15:22 Urine Color Yellow Urine Appearance Clear Urine pH 7.5 Ur Specific [place] 1.005 Urine Protein Negative Urine Glucose (UA) Negative Urine Ketones 1+ H Ur Blood (Man) Negative Urine Nitrate Negative Urine Bilirubin Negative Urine Urobilinogen 0.2 Ur Leukocyte Esterase Trace H Urine RBC 0-2 Urine WBC 0-5 Ur Squamous Epith Cells Occasional Urine Bacteria None seen Urine Casts 0-2 Fibronectin Negative OB - PN A/P Time Spent With Patient Time: Total time spent is greater than 50% in coordination of care (as documented) at patient's floor/unit and/or counseling patient:
[2022-09-23] MEDS: MAGNESIUM SULF 20GM/WATER500ML 500 ML 50 MG IV CONT (21:46)
--- NOTE | 2022-10-13 20:58 | P.PNOB_ITS ---
OB - Triage/Final Diagnosis Visit Information Comments/Additional reasons for admission: I have assessed the risk for this patient, Soni Newby, and determined that she would benefit from observation care. Evaluation Laboratory results: Laboratory Tests 09/23/22 09/23/22 13:58 15:22 Urine Color Yellow Urine Appearance Clear Urine pH 7.5 Ur Specific [place] 1.005 Urine Protein Negative Urine Glucose (UA) Negative Urine Ketones 1+ H Ur Blood (Man) Negative Urine Nitrate Negative Urine Bilirubin Negative Urine Urobilinogen 0.2 Ur Leukocyte Esterase Trace H Urine RBC 0-2 Urine WBC 0-5 Ur Squamous Epith Cells Occasional Urine Bacteria None seen Urine Casts 0-2 Fibronectin Negative Final Diagnosis (1) labor in third trimester: Code(s): O60.03 - labor without delivery, third trimester Status: Acute
== END 2022-09-23 22:37 | disposition short-term general hospital (02) ==
PROVIDERS: Admitting Provider Obstetrics & Gynecology; PCP Family Medicine; Visit Provider Obstetrics & Gynecology
DX: O60.03 Preterm labor without delivery, third trimester (principal); Z3A.32 32 weeks gestation of pregnancy
CPT/HCPCS: 81001; 82731; 87086; 96372; 96374; 96376; A9270; G0378; G0379; J0702; J3475; J7120

== ENCOUNTER 2022-10-30 08:08 | Observation (INO) | payer OTHER, SELFPAY ==
[2022-10-30 09:30] VITALS: TEMP 36.6
--- NOTE | 2022-10-30 09:42 | OBADM ---
This patient, Soni Newby, admitted to the OB room Labor/Delivery/Recovery 107 for observation. Patient/family oriented to hospital policies and general routines including ID bracelet, bed and alarms, visiting hours, pain management, procedures, bathroom and other care routines, personal items, smoking policy, room service/diet, and visiting hours. Patient/Family are encouraged to report perceived risks to care and to ask questions if they do not understand what they are told or what they should do.
--- NOTE | 2022-11-01 08:32 | PM.OBTRLD ---
OB - Triage/Final Diagnosis Visit Information Comments/Additional reasons for admission: I have assessed the risk for this patient, Soni Newby, and determined that she would benefit from observation care. Final Diagnosis (1) Pelvic pressure in : Code(s): O26.899 - Other specified related conditions, unspecified trimester; R10.2 - Pelvic and perineal pain Status: Acute
== END 2022-10-30 09:48 | disposition home or self-care (01) ==
PROVIDERS: Admitting Provider Obstetrics & Gynecology; PCP Family Medicine; Visit Provider Obstetrics & Gynecology
DX: O26.899 Other specified pregnancy related conditions, unspecified trimester (principal); R10.2 Pelvic and perineal pain; Z3A.37 37 weeks gestation of pregnancy
CPT/HCPCS: G0378; G0379

== ENCOUNTER 2022-11-08 00:01 | Inpatient (IN) | payer OTHER, SELFPAY ==
[2022-11-08] VITALS (155 sets, daily range): BP systolic 78–151; BP diastolic 45–109; PULSE 57–123; RESP 16; TEMP 36.2–36.7; O2SAT 88–100; BMI 30.2
[2022-11-08 00:37] LABS: Basophils Percent Auto 0.3 % (0.2-1.2); Eosinophils Absolute Auto 0.2 K/mm3 (0-0.3); Eosinophils Percent Auto 1.8 % (0-4.4); Hematocrit 34.2 % (37.0-47.0); Hemoglobin 10.8 g/dL (12.0-15.0); Immature Granulocyte Absolute 0.05 K/mm3 (0.00-0.031); Immature Granulocyte Percent A 0.6 % (0-0.5); Lymphocytes Absolute Auto 2.58 K/mm3 (0.9-3.2); Lymphocytes Percent Auto 28.6 % (18.3-44.2); Mean Corpuscular HGB Conc 31.6 g/dl (32-36); Mean Corpuscular Hemoglobin 24.4 pg (26-34); Mean Corpuscular Volume 77.2 fl (80-100); Mean Platelet Volume 11.2 fl (7.4-10.4); Monocytes Absolute Auto 0.9 K/mm3 (0.1-0.6); Monocytes Percent Auto 9.4 % (2.6-8.5); Neutrophils Absolute Auto 5.3 K/mm3 (1.3-6.7); Neutrophils Percent Auto 59.3 % (45.5-73.1); Platelet Count Result 245 k/mm3 (150-375); Red Blood Count 4.43 M/mm3 (4.2-5.4); Red Cell Distribution Width 13.5 % (11.5-14.5)
[2022-11-08] MEDS: OXYTOCIN 30 UNITS/NS 500 ML 30 UNITS/500 ML BAG IV CONT (00:44)
[2022-11-08] MEDS: LACTATED RINGERS 1,000 ML 125 ML IV CONT ×3 (00:45→10:39)
[2022-11-08 03:18] LABS: HIV 1/2 Ab P24 Ag Result Negative (Negative)
--- NOTE | 2022-11-08 05:29 | WPDANESEPP ---
Anes - Eval Pre Procedure Procedure: Labor pains Date/Time: 11/08/22 05:29 Pre Op Diagnosis: IOL Patient Data Age: 27 Gender: F Height: 1.63 m Weight: 80 kg Last Vital Signs Temp 36.4 C 11/08/22 00:30 Pulse 66 11/08/22 05:12 BP 115/68 11/08/22 05:12 Pulse Ox 89 L 11/08/22 05:26 O2 Del Method Room Air 11/08/22 00:14 Allergies Allergy/AdvReac Type Severity Reaction Status Date / Time No Known Allergies Allergy Verified 10/29/22 12:24 Home Medications Medication Instructions Recorded Confirmed Type albuterol 90 mcg/actuation aerosol 90 mcg inhalation DAILY PRN 12/11/20 10/29/22 History inhaler Wheezing vit no.95-ferrous 1 tablet PO DAILY 12/11/20 10/29/22 History fumarate 28 mg-folic acid 800 mcg tablet () Laboratory Tests 11/08/22 00:11 WBC 9.0 K/mm3 (4.5-10.0) RBC 4.43 M/mm3 (4.2-5.4) Hgb 10.8 L g/dL (12.0-15.0) Hct 34.2 L % (37.0-47.0) MCV 77.2 L fl (80-100) MCH 24.4 L pg (26-34) MCHC 31.6 L g/dl (32-36) RDW 13.5 % (11.5-14.5) Plt Count 245 k/mm3 (150-375) MPV 11.2 H fl (7.4-10.4) Immature Gran % (Auto) 0.6 H % (0-0.5) Neut % (Auto) 59.3 % (45.5-73.1) Lymph % (Auto) 28.6 % (18.3-44.2) [place] % (Auto) 9.4 H % (2.6-8.5) Eos % (Auto) 1.8 % (0-4.4) Baso % (Auto) 0.3 % (0.2-1.2) Lymph # (Auto) 2.58 K/mm3 (0.9-3.2) [place] # (Auto) 0.9 H K/mm3 (0.1-0.6) Eos # (Auto) 0.2 K/mm3 (0-0.3) Baso # (Auto) 0.0 K/mm3 (0.0-0.1) Abs Immat Gran (auto) 0.05 H K/mm3 (0.00-0.031) Absolute Neuts (auto) 5.3 K/mm3 (1.3-6.7) Absolute Nucleated RBC 0.0 K/mm3 (0.0-0.012) Nucleated RBC % 0.0 % (0.0-0.2) RPR Pending HIV 1&2 Ab/P24 Ag 4thGn Negative (Negative) Blood Type A Positive Antibody Screen Negative Patient hx anesthesia problems: none Family hx anesthesia problems: none Results Review: All pre-operative results and documents have been reviewed as part of the pre-operative evaluation. [facility] Past Medical History Medical History Anxiety Asthma Family History Family History Other No pertinent family history Social History Social History Smoking status: Never smoker Second hand tobacco smoke exposure: No Substance use: never Lack of Transportation: No Lack of Food: Never True Current Housing: Decline to Answer Concerned About Future Housing: No Difficulty Paying Gas/Electric Bills: No Difficulty Paying for Meds: No Currently Unemployed: No Education: Bachelor's Degree Difficulty w/ Childcare or Family Care: No Spiritual care concerns: No Exam Day of Procedure 11/08/22 05:29 Patient weight: obese Heart: regular rate and rhythm Lungs: normal air movement Airway: Mallampati scale Neurological: alert and oriented
--- NOTE | 2022-11-08 07:55 | WPDOBADMIT ---
Obstetrics - Admit Note Admission Note: record reviewed. No pertinent additions to the history and/or any subsequent changes in the physical findings that are not consistent with the expected course of the were found. IOL SVE /-2 AROM large amount of clear, odorless fluid, IUPC placed, anticipate vaginal delivery Additions to the history and/or subsequent changes in the physical findings follow. None.
--- NOTE | 2022-11-08 12:50 | PM.OBPRVD ---
OB - Delivery Note Procedure Delivery date: 11/08/22 Procedure: Induction method: AROM and Per Pitocin Protocol Delivery monitor: External FHT and Internal Uterine Route of delivery: Laceration Description: None Specimen: No Quantitative Blood Loss (ml): 50 Anesthesia type: Epidural Disposition: Floor Baby Date of : 11/08/22 Time of : 12:42 Weeks of gestation at delivery: 39 Infant gender: Male presentation: vertex position: Left Occiput Anterior Placenta delivery description: Spontaneous Cord Vessel Description: 3 Vessels, Clamped/Cut and Delayed Cord Clamping Narrative: mother and baby skin to skin in stable condition
[2022-11-08] MEDS: OXYTOCIN 30 UNITS/NS 500 ML 30 UNITS/500 ML BAG 125 UNITS IV CONT (13:16)
[2022-11-08 14:04] LABS: Rapid Plasma Reagin Non-Reactive (NonReactive)
--- NOTE | 2022-11-08 15:05 | OBPPTRN ---
Patient transferred to post room # 291 via wheelchair accompanied by spouse and . PT introductions made and plan of care discussed per post , pain management, daily care activities and bottle feeding, PT and spouse both recipients of such instructions and no barriers to learning identified at this time. PT received such instructions per one to one discussion, mom baby care guide and demonstrations this shift Oriented to unit, room, information board, rooming in, admission packet and security measures. PT received instructions per Iván Fox RN. Patient verbalizes understanding.
[2022-11-08] MEDS: WITCH HAZEL 40 PADS 1 PAD TOPICAL (15:06)
[2022-11-08] MEDS: BENZOCAINE 20% AER SPR (*SP) 56 GM CAN 1 SPRAY TOPICAL (15:07)
[2022-11-08] MEDS: IBUPROFEN 600 MG TABLET PO ×2 (15:51→23:47)
[2022-11-08] MEDS: DOCUSATE SODIUM 100 MG CAPSULE PO (15:52)
[2022-11-08] MEDS: ACETAMINOPHEN 325 MG TABLET 650 MG PO (18:31)
[2022-11-09] MEDS: ACETAMINOPHEN 325 MG TABLET 650 MG PO (04:50)
[2022-11-09 05:23] LABS: Hematocrit 32.7 % (37.0-47.0); Hemoglobin 10.1 g/dL (12.0-15.0)
[2022-11-09] MEDS: IBUPROFEN 600 MG TABLET PO (06:56)
[2022-11-09] MEDS: DOCUSATE SODIUM 100 MG CAPSULE PO (06:56)
--- NOTE | 2022-11-09 07:20 | PM.OBPNVD ---
OB - PN: Subj Subjective Date/time seen: 11/09/22 07:20 Interval history: pp day 1 doing well no complaints baby doing well OB - PN: Obj Data Labs 11/09/22 04:46 Labs: Laboratory Results - last 24 hr 11/08/22 11/09/22 00:11 04:46 Hgb 10.1 L Hct 32.7 L RPR Non-reactive OB - PN A/P Plan day: 1 Plan: routine care Time Spent With Patient Time: Total time spent is greater than 50% in coordination of care (as documented) at patient's floor/unit and/or counseling patient: Review of Systems Review of Systems: All systems reviewed & are unremarkable except as noted in HPI and below Exam Const: General: cooperative and healthy appearing Chest: Chest palpation & inspection: normal inspection of the chest Resp: Effort & Inspection: normal respiratory effort Cardio: Rate: regular rate Rhythm: regular rhythm GI: Other: soft Extrem: Right lower extremity: edema (trace) Left lower extremity: edema (trace) Psych: Appearance: grossly normal
[2022-11-09 08:00] VITALS: PULSE 67; RESP 14; O2SAT 98
[2022-11-09 08:22] VITALS: BP 111/79; PULSE 67; RESP 14; TEMP 37.1
--- NOTE | 2022-11-09 10:22 | WPDANLDPN2 ---
Anes-Prog Note L&D Date/Time: 11/09/22 10:22 Comfortable throughout: labor and delivery Neuraxial method: epidural Epidural/Spinal procedure site: clean & non-tender Neuro status: Neuro function grossly intact. Cardiovascular status: normal Respiratory status: normal Airway patency: baseline Mental status: baseline Post-Op hydration status: normal Vital Signs: Last Vital Signs Temp 37.1 C 11/09/22 08:22 Pulse 67 11/09/22 08:22 Resp 14 11/09/22 08:22 BP 111/79 11/09/22 08:22 Pulse Ox 98 11/08/22 15:29 O2 Del Method Room Air 11/08/22 00:14 Pain score (VAS): 4/10 Post-procedural complaints: none Patient feedback: Patient satisfied with anesthetic care.
[2022-11-11 11:21] VITALS: BP 112/77; PULSE 71; RESP 18; TEMP 36.9; O2SAT 99
--- NOTE | 2022-11-11 16:00 | PM.OBDSVD ---
DS: Admitting Diagnosis Discharge Date 11/09/22 Admitting Diagnosis IOL DS: Discharge Diagnosis Discharge Diagnosis (1) Vaginal delivery: Code(s): O80 - Encounter for full-term uncomplicated delivery Status: Acute OB - DS: Summary OB Procedures : None OB Procedures Intrapartum: Spontaneous Vag Delivery OB Procedures: : None Time Spent with Patient Time attestation: Total time spent providing and/or coordinating discharge services: Discharge Plan Discharge Attending physician on discharge: Gunnar Kasper Consulting providers: Kavya Haywood; Soni Elizabeth; Rod Grayson Discharging Clinician: Soni Elizabeth Patient Disposition: Home, Self-Care Activity: pelvic rest Diet: regular Discharge Instructions: Education: Mom and Baby Guide Given to: Mother Follow-Up: Call your delivering provider's office for an appointment to be seen in: Call for appointment Mom and baby should come to the [facility] for the follow-up appointment. Appointment Date/Time: Friday, November 11, 2022 at 11:00 a.m. What to expect at your follow-up visit: Blood Pressure Check Physical Assessment Call [phone] if you are unable to keep your appointment time. BREAST CARE: * Wear a snug supportive bra. * For engorgement discomfort: Bottle Feeding: * May apply ice packs * For sore nipples: EPISIOTOMY/PERINEAL CARE: * Until bleeding stops, use your tressa bottle after urinating * Change your pad frequently throughout the day * You may take sitz baths several times a day (fill your bathtub with warm water and soak for 20 minutes.) Do NOT bathe in the water * No tub baths until seen by your physician - You may shower ACTIVITY: * Rest as much as possible. * Do not exercise or lift anything heavier than your baby (such as laundry or other children.) * Avoid stairs or driving as much as possible. * Do not put anything into the vagina. No douching, tampons, or sexual activity until seen by physician. NOTIFY PHYSICIAN IF YOU HAVE ANY QUESTIONS OR IF ANY OF THE FOLLOWING SYMPTOMS OCCUR: * If your vaginal bleeding becomes foul smelling. * If your vaginal bleeding becomes more heavy than a period or if your bleeding changes from pink to bright red. However, you may pass an occasional walnut-sized clot once or twice for the first week . * If you experience a sharp, shooting pain in you calves. DIET: * Eat regular, well-balanced meals. * Drink plenty of fluids daily. Stand Alone Forms: General Discharge Information Follow-up/Referrals: Soni Elizabeth CNM [Certified Nurse Dump Operator] - Call for Appointment Discharge Medications: New ibuprofen 600 mg Tablet 600 mg PO Q6H PRN (Reason: Cramping) Qty: 30 0RF sertraline [Zoloft] 50 mg tablet 50 mg PO DAILY Qty: 14 0RF Rx Instructions: take daily for 2 weeks then increase to 100mg daily sertraline [Zoloft] 100 mg tablet 100 mg PO DAILY Qty: 30 0RF Rx Instructions: take after 2 weeks of zoloft 50 mg, 1 tab po daily Continued albuterol 90 mcg/actuation Aerosol 90 mcg INHALATION DAILY PRN (Reason: Wheezing) PNV cmb#95-ferrous fumarate-FA [] 28 mg iron- 800 mcg Tablet 1 tablet PO DAILY Date of admission: 11/08/22 00:01 Primary Care Provider: Jey,David Valerio Admitting Provider: Gunnar Kasper Attending physician on admission: Gunnar Kasper Condition: Stable
== END 2022-11-09 16:12 | disposition home or self-care (01) | DRG 560 ==
LOC: ANHLDR 00:15 → ANHOB2 15:58
PROVIDERS: Advanced Practice Midwife; Admitting Provider Obstetrics & Gynecology; PCP Family Medicine; Visit Provider Obstetrics & Gynecology
DX: O80 Encounter for full-term uncomplicated delivery (principal); Z37.0 Single live birth; Z3A.39 39 weeks gestation of pregnancy
CPT/HCPCS: 36415; 85014; 85018; 85025; 86592; 86703; 86850; 86900; 86901; A9270; G0432; J2590; J2795; J7120